=== PATIENT | female | born 1955 | race Caucasian/White ===

== ENCOUNTER 2021-04-03 22:35 | Emergency (ER) | payer MEDICARE, OTHER ==
[~2021-04-03] VITALS: Ht 154.9 cm; Wt 73.4 kg
--- NOTE | 2021-04-03 22:54 | ED Back Pain ---
General Chief Complaint: Back Problems Stated Complaint: BACK PAIN Nursing Triage Note: Patient states that she is having severe muscle pain in her back. Patient describes this as muscle spasms. Patient states that she got a topical muscle patch that did not help. Nursing Sepsis Screen: No Definite Risk Source of Information: Patient History of Present Illness Date Seen by Provider: Apr 03, 2021 Time Seen by Provider: 22:35 Initial Comments Patient is a 65-year-old female presents with intermittent left flank pain starting approximately 3 hours prior to ED arrival. Pain is sharp, rated moderate to severe is brief lasting seconds to minutes. Patient noted pain this morning after working out in her yard. It is nonradiating and nonmigratory. It is not reproduced with palpation movement or palpation. It is not relieved with rest. Denies nausea vomiting, sweats, abdominal pain, tenderness. No urinary frequency urgency hesitancy or hematuria. Denies history of kidney stones. Denies extremity weakness or loss of sensation. No fever chills or sweats. No other acute symptoms or complaints. Location: Paraspinous Muscles Timing/Duration: 4-6 Hours Severity: Severe Pain/Injury Location: Other Radiation: Other Method of Injury: Other Modifying Factors: Improves With Other Associated Symptoms: other Allergies and Home Medications Allergies Coded Allergies: Penicillins (Verified Allergy, Unknown, 04/03/21) Patient Home Medication List Home Medication List Reviewed: Yes Review of Systems Constitutional: see HPI EENTM: see HPI Respiratory: see HPI Gastrointestinal: see HPI Genitourinary: see HPI Control/STD Prophylaxis: None Musculoskeletal: see HPI Skin: see HPI Psychiatric/Neurological: See HPI All Other Systems Reviewed Negative Unless Noted: Yes Past Gouhtsj-Zrkcnw-Kjxows Hx Past Med/Social Hx: Reviewed Nursing Past Med/Soc Hx Patient Social History Alcohol Use: Denies Use Smoking Status: Never a Smoker Recent Infectious Disease Expo: No Past Medical History Surgeries: Yes Appendectomy, Gallbladder Respiratory: No Cardiac: No Neurological: No Genitourinary: No Gastrointestinal: No Musculoskeletal: No Endocrine: No HEENT: No Cancer: No Psychosocial: No Integumentary: No Physical Exam Vital Signs Vital Signs - First Documented 04/03/21 22:37 Temp 37.0 Pulse 80 Resp 20 B/P (MAP) 139/65 (89) Pulse Ox 96 O2 Delivery Room Air Capillary Refill : Less Than 3 Seconds Height, Weight, BMI Height: '" Weight: lbs. oz. kg; 30.00 BMI Method: General Appearance: Moderate Distress HEENT: PERRL/EOMI, Normal ENT Inspection, Pharynx Normal Neck: Full Range of Motion, Normal Inspection, Supple Cardiovascular: Regular Rate, Rhythm Respiratory: Chest Non Tender, Lungs Clear Gastrointestinal: Non Tender, Soft Back: Normal Inspection, No CVA Tenderness, No Vertebral Tenderness Extremity: Normal Capillary Refill Neurologic/Psychiatric: Alert, Oriented x3 Skin: Normal Color, Warm/Dry Progress/Results/Core Measures Results/Orders Lab Results Laboratory Tests Test 04/03/21 22:50 04/03/21 22:57 Range/Units White Blood Count 9.7 4.3-11.0 10^3/uL Red Blood Count 4.32 L 4.35-5.85 10^6/uL Hemoglobin 12.4 11.5-16.0 G/DL Hematocrit 37 35-52 % Mean Corpuscular Volume 85 80-99 FL Mean Corpuscular Hemoglobin 29 25-34 PG Mean Corpuscular Hemoglobin Concent 34 32-36 G/DL Red Cell Distribution Width 13.5 10.0-14.5 % Platelet Count 298 130-400 10^3/uL Mean Platelet Volume 10.2 7.4-10.4 FL Immature Granulocyte % (Auto) 0 % Neutrophils (%) (Auto) 52 42-75 % Lymphocytes (%) (Auto) 36 12-44 % Monocytes (%) (Auto) 9 0-12 % Eosinophils (%) (Auto) 2 0-10 % Basophils (%) (Auto) 1 0-10 % Neutrophils # (Auto) 5.1 1.8-7.8 X 10^3 Lymphocytes # (Auto) 3.5 1.0-4.0 X 10^3 Monocytes # (Auto) 0.9 0.0-1.0 X 10^3 Eosinophils # (Auto) 0.2 0.0-0.3 10^3/uL Basophils # (Auto) 0.1 0.0-0.1 10^3/uL Immature Granulocyte # (Auto) 0.0 0.0-0.1 10^3/uL Sodium Level 142 135-145 MMOL/L Potassium Level 3.6 3.6-5.0 MMOL/L Chloride Level 107 98-107 MMOL/L Carbon Dioxide Level 25 21-32 MMOL/L Anion Gap 10 5-14 MMOL/L Blood Urea Nitrogen 19 H 7-18 MG/DL Creatinine 0.96 0.60-1.30 MG/DL Estimat Glomerular Filtration Rate 58 BUN/Creatinine Ratio 20 Glucose Level 114 H 70-105 MG/DL Calcium Level 9.2 8.5-10.1 MG/DL Corrected Calcium 9.0 8.5-10.1 MG/DL Total Bilirubin 0.5 0.1-1.0 MG/DL Aspartate Amino Transf (AST/SGOT) 16 5-34 U/L Alanine Aminotransferase (ALT/SGPT) 14 0-55 U/L Alkaline Phosphatase 91 40-136 U/L Total Protein 6.9 6.4-8.2 GM/DL Albumin 4.2 3.2-4.5 GM/DL Urine Color YELLOW Urine Clarity SLIGHTLY CLOUDY Urine pH 6.0 5-9 Urine Specific [place] >=1.030 1.016-1.022 Urine Protein NEGATIVE NEGATIVE Urine Glucose (UA) NEGATIVE NEGATIVE Urine Ketones NEGATIVE NEGATIVE Urine Nitrite POSITIVE H NEGATIVE Urine Bilirubin NEGATIVE NEGATIVE Urine Urobilinogen 0.2 < = 1.0 MG/DL Urine Leukocyte Esterase 1+ H NEGATIVE Urine RBC (Auto) NEGATIVE NEGATIVE Urine RBC NONE /HPF Urine WBC 5-10 H /HPF Urine Squamous Epithelial Cells 2-5 /HPF Urine Crystals NONE /LPF Urine Bacteria MODERATE H /HPF Urine Casts NONE /LPF Urine Mucus SMALL H /LPF Urine Culture Indicated YES My Orders Orders - MARTHA ROSEN DO Cbc With Automated Diff (04/03/21 22:47) Comprehensive Metabolic Panel (04/03/21 22:47) Urinalysis (04/03/21 22:47) Fentanyl Inj (Sublimaze Injection) (04/03/21 23:00) Ondansetron Injection (Zofran Injectio (04/03/21 23:00) Ketorolac Injection (Toradol Injection) (04/03/21 23:00) Ct Abdomen/Pelvis Wo (04/03/21 22:48) Ed Iv/Invasive Line Start (04/03/21 23:05) Urine Culture (04/03/21 22:57) Ceftriaxone For Iv Use (Rocephin For I (04/03/21 23:30) Medications Given in ED Current Medications Medications Dose Ordered Sig/Umm Route Start Time Stop Time Status Last Admin Dose Admin Ceftriaxone Sodium 1000 mg/ Sterile Water 10 ml @ 200 mls/hr ONCE ONCE IV 04/03/21 23:30 04/03/21 23:32 DC 04/03/21 23:32 200 MLS/HR Fentanyl Citrate 50 mcg ONCE ONCE IVP 04/03/21 23:00 04/03/21 23:01 DC 04/03/21 22:59 50 MCG Ketorolac Tromethamine 30 mg ONCE ONCE IVP 04/03/21 23:00 04/03/21 23:01 DC 04/03/21 23:01 30 MG Ondansetron HCl 4 mg ONCE ONCE IVP 04/03/21 23:00 04/03/21 23:01 DC 04/03/21 22:57 4 MG Vital Signs/I&O 04/03/21 22:37 Temp 37.0 Pulse 80 Resp 20 B/P (MAP) 139/65 (89) Pulse Ox 96 O2 Delivery Room Air Blood Pressure Mean: 89 Departure Communication (Admissions) CT abdomen pelvis: No acute findings per radiology report. Labs and imaging reviewed. Patient appears to have component of musculoskeletal with urinary tract infection. IV fluids antibiotics and patient resting comfortably. We will continue supportive and therapeutic care with instructions to follow-up with PCP in 2 to 3 days for reevaluation. Return precautions reviewed. Patient verbalizes understanding agreement discharge instructions prior to departure. Impression Primary Impression: Lumbar back pain Additional Impression: Urinary tract infection Disposition: HOME, SELF-CARE Condition: Stable Departure-Patient Inst. Decision time for Depature: 00:25 Referrals: AKBAR CHRISTOPHER MD (PCP/Family) Primary Care Physician Patient Instructions: Urinary Tract Infection, Adult ED, Low Back Pain in Adults Add. Discharge Instructions: Please increase fluids and take ibuprofen for pain and hydrocodone as needed for additional relief. Complete full course of antibiotics and follow-up with your PCP in 3 to 5 days for reevaluation. Return to the ED if new or worsening symptoms. All discharge instructions reviewed with patient and/or family. Voiced understanding. Scripts Hydrocodone/Acetaminophen (Hydrocodone-Acetamin 5-325 mg) 1 Each Tablet 1 TAB PO Q4H PRN for PAIN-MODERATE (5-7), #10 TAB Prov: MARTHA ROSEN DO 04/04/21 Cefdinir (Cefdinir) 300 Mg Capsule 300 MG PO BID, #10 CAP Prov: MARTHA ROSEN DO 04/04/21 MARTHA ROSEN DO Apr 03, 2021 22:54
[2021-04-03 22:57] LABS: BASOPHILS # (AUTO) 0.1 10^3/uL (0.0-0.1); BASOPHILS % (AUTO) 1 % (0-10); EOSINOPHILS # (AUTO) 0.2 10^3/uL (0.0-0.3); EOSINOPHILS % (AUTO) 2 % (0-10); HEMATOCRIT 37 % (35-52); HEMOGLOBIN 12.4 G/DL (11.5-16.0); LYMPHOCYTES # (AUTO) 3.5 X 10^3 (1.0-4.0); LYMPHOCYTES % (AUTO) 36 % (12-44); MEAN CORPUSCULAR HEMOGLOBIN 29 PG (25-34); MEAN CORPUSCULAR HGB CONC 34 G/DL (32-36); MEAN CORPUSCULAR VOLUME 85 FL (80-99); MEAN PLATELET VOLUME 10.2 FL (7.4-10.4); MONOCYTES # (AUTO) 0.9 X 10^3 (0.0-1.0); MONOCYTES % (AUTO) 9 % (0-12); NEUTROPHILS # (AUTO) 5.1 X 10^3 (1.8-7.8); NEUTROPHILS % (AUTO) 52 % (42-75); PLATELET COUNT 298 10^3/uL (130-400); WHITE BLOOD COUNT 9.7 10^3/uL (4.3-11.0)
[2021-04-03] MEDS ORDERED: fentaNYL INJ 100 MCG/2 ML AMP IVP ONE (23:00)
[2021-04-03] MEDS ORDERED: ONDANSETRON 4 MG/2 ML (SDV) Z0FRAN IVP ONE (23:00)
[2021-04-03] MEDS ORDERED: KETOROLAC 30 MG/ML VIAL IVP ONE (23:00)
[2021-04-03 23:10] LABS: BACTERIA,URINE MODERATE /HPF; BILIRUBIN,URINE NEGATIVE (NEGATIVE); CLARITY,URINE SLIGHTLY CLOUDY; COLOR,URINE YELLOW; GLUCOSE, URINE (UA) NEGATIVE (NEGATIVE); KETONES,URINE NEGATIVE (NEGATIVE); LEUKOCYTE ESTERASE ,URINE 1+ (NEGATIVE); NITRITE,URINE POSITIVE (NEGATIVE); PROTEIN,URINE NEGATIVE (NEGATIVE)
[2021-04-03 23:21] LABS: ALBUMIN 4.2 GM/DL (3.2-4.5); BILIRUBIN,TOTAL 0.5 MG/DL (0.1-1.0); CALCIUM 9.2 MG/DL (8.5-10.1); CREATININE SERUM 0.96 MG/DL (0.60-1.30); POTASSIUM 3.6 MMOL/L (3.6-5.0); TOTAL PROTEIN 6.9 GM/DL (6.4-8.2)
[2021-04-03] MEDS ORDERED: cefTRIAXone FOR IV USE 1,000 MG in WATER (STERILE) FOR INJECTION 10 ML IV ONE (23:30)
[2021-04-04] MEDS ORDERED: ACHD5005 PO (00:26)
[2021-04-04] MEDS ORDERED: CEFD300C3 PO (00:26)
[2021-04-04 00:29] VITALS: BP 124/62
--- NOTE | 2021-04-04 07:15 | Diagnostic Imaging Report ---
PROCEDURE: CT abdomen and pelvis without contrast. TECHNIQUE: Multiple contiguous axial images were obtained through the abdomen and pelvis without the use of intravenous contrast. Auto Exposure Controls were utilized during the CT exam to meet ALARA standards for radiation dose reduction. INDICATION: Left flank pain. COMPARISON: None. DISCUSSION: Mostly calcified nodule within the right lower lobe measuring up to 1.1 cm, likely benign though recommend follow-up or comparison with older studies to document stability. Normal heart size. No pleural or pericardial fluid. The gallbladder is surgically absent. The liver, pancreas, stomach, spleen, and adrenal glands are unremarkable. There is a 3.2 cm cyst posteriorly within the left kidney, benign in appearance though limited evaluation due to lack of contrast. No renal stone or hydronephrosis. The aorta is normal in caliber. Urinary bladder is decompressed. The uterus is unremarkable. No obstruction, pneumatosis, or pneumoperitoneum. Minimal diverticulosis. No diverticulitis. No evidence for appendicitis. No ascites or adenopathy. No acute osseous abnormality identified. IMPRESSION: 1. No renal stone or other acute abnormality identified within the abdomen. 2. Partially calcified nodule within the right lower lobe, see above discussion. 3. Agree with preliminary report. Dictated by: Dictated on workstation # [id number]
== END 2021-04-04 00:29 | disposition home or self-care (01) ==
LOC: ER FS 22:37
DX: N39.0 Urinary tract infection, site not specified (principal); Z88.0 Allergy status to penicillin
CPT/HCPCS: 36415; 74176; 80053; 81000; 85025; 87088